=== PATIENT | female | born 1965 | race Caucasian/White ===

== ENCOUNTER 2018-10-25 09:40 | Day surgery (SDC) | payer OTHER ==
[2018-10-24 15:32] VITALS: Ht 165.1 cm; Wt 62.0 kg
[2018-10-25] VITALS (10 sets, daily range): BP systolic 112–122; BP diastolic 58–64; PULSE 60–75; RESP 14–19
[~2018-10-25] VITALS: Ht 165.1 cm; Wt 62.0 kg
[~2018-10-25 09:40] MED LIST: CLINDAMYCIN 600 MG/50 ML D5W IVPB IVPB ONE
[2018-10-25] MEDS ORDERED: BUPIVACAINE 0.5% (SDV) 30 ML INJ ONE (11:05)
[2018-10-25] MEDS ORDERED: BUPIVACAINE 0.25% (MPF) 30 ML INJ ONE (11:06)
[2018-10-25] MEDS ORDERED: PROPOFOL 100 ML ONE (11:07)
[2018-10-25] MEDS ORDERED: LIDOCAINE 100 MG SYRINGE ONE (11:07)
[2018-10-25] MEDS ORDERED: DEXAMETHASONE 4 MG/ML 5 ML INJ ONE (11:08)
[2018-10-25] MEDS ORDERED: ONDANSETRON 4 MG INJ ONE (11:08)
[2018-10-25] MEDS ORDERED: FENTAnyl 50 MCG/ML VIAL ONE (11:10)
[2018-10-25] MEDS ORDERED: LIDOCAINE 1% (MPF) 30 ML INJ ONE (11:22)
--- NOTE | 2018-10-25 11:25 | PREAC ---
Date/Time of Note Date/Time of Note DATE: 10/25/18 TIME: 11:25 Anesthesia Eval and Record Evaluation Time Pre-Procedure Interview DATE: 10/25/18 TIME: 11:25 Age 52 Sex female NPO: 8 hrs Preoperative diagnosis RIGHT CARPAL TUNNEL Planned procedure RIGHT CARPAL TUNNEL RELEASE Past Medical History Past Medical History: None Surgery & Anesthesia Issues No known issue Meds Anticoagulation: No Beta Nerissa within 24 hr: No Reason Beta Nerissa not given: Pt. not on B-Nerissa No Active Prescriptions or Reported Meds Meds reviewed: Yes Allergies Coded Allergies: Penicillins (Unverified Allergy, Unknown, RASHES, 10/25/18) PER PT diazepam (Verified Allergy, Unknown, DON'T REMEBER HAD IT WHEN SHE WAS A CHILD, 10/25/18) PER PT Allergies Reviewed: Yes Labs/Studies Labs Reviewed: Reviewed by anesthesiologist Result Diagram: 10/25/18 1020 10/25/18 1020 Laboratory Tests 10/25/18 10:20 test: Negative Pre-procedure Exam Last vitals Vital Signs Date Temp Pulse Resp B/P (MAP) Pulse Ox O2 O2 Flow FiO2 Time Delivery Rate 10/25/18 98.5 75 16 112/64 99 Room Air 10:49 (80) Airway: Adequate mouth opening Mallampati: Mallampati I Teeth: Normal Lung: Normal Heart: Normal ASA Physical Status ASA physical status: 1 Emergency: None Planned Anesthetic General/MAC: MAC Pre-operative Attestations Prior to commencing anesthesia and surgery, the patient was re-evaluated, there was verification of: *The patient's identity *The results of appropriate recent lab work and preoperative vital signs *The above evaluation not changing prior to induction *Anesthetic plan, risk benefits, alternative and complications discussed with patient/family; questions answered; patient/family understands, accepts and wishes to proceed. RODRIGUE MONTES DE OCA Oct 25, 2018 11:25
[2018-10-25] MEDS ORDERED: METOCLOPRAMIDE 10 MG INJ IV PRN (11:30)
[2018-10-25] MEDS ORDERED: LABETALOL HCL 20MG INJ IV PRN (11:30)
[2018-10-25] MEDS ORDERED: ONDANSETRON 4 MG INJ IV PRN (11:30)
[2018-10-25] MEDS ORDERED: FENTAnyl 50 MCG/ML VIAL IV PRN ×2 (11:30)
[2018-10-25] MEDS ORDERED: hydrALAzine 20 MG INJ IV PRN (11:30)
[2018-10-25] MEDS ORDERED: HYDROmorphONE 1 MG/5 ML IV SYRINGE IV PRN ×2 (11:30)
[2018-10-25] MEDS ORDERED: BACITRACIN/POLYMYXIN 28.35 GM OINT TOP ONE (12:01)
--- NOTE | 2018-10-25 12:12 | SIPON ---
Date/Time of Note Date/Time of Note DATE: 10/25/18 TIME: 12:11 Operative Report Preoperative Diagnosis Right carpal tunnel syndrome Postoperative Diagnosis Right carpal tunnel syndrome Operation/Procedure Performed Right carpal tunnel release Surgeon see signature line it administrative assistant None Anesthesia: general, MAC Estimated blood loss: minimal Transfusion Required none Specimen none Grafts/Implants none Complications none LIZBETH LOWE MD Oct 25, 2018 12:11
--- NOTE | 2018-10-25 12:15 | PAC ---
Date/Time of Note Date/Time of Note DATE: 10/25/18 TIME: 12:15 Post-Anesthesia Notes Post-Anesthesia Note Last documented vital signs Vital Signs Date Temp Pulse Resp B/P (MAP) Pulse Ox O2 O2 Flow FiO2 Time Delivery Rate 10/25/18 98.5 75 16 112/64 99 Room Air 10:49 (80) Activity: WNL Respiratory function: WNL Cardiovascular function: WNL Mental status: Baseline Pain reasonably controlled: Yes Hydration appropriate: Yes Nausea/Vomiting absent: Yes RODRIGUE MONTES DE OCA Oct 25, 2018 12:15
--- NOTE | 2018-10-25 12:19 | OPR ---
Date/Time of Note Date/Time of Note DATE: 10/25/18 TIME: 12:12 Operative Report Procedure Date: Oct 25, 2018 Preoperative Diagnosis Right carpal tunnel syndrome Postoperative Diagnosis Right carpal tunnel syndrome Operation/Procedure Performed Right carpal tunnel release Surgeon see signature line Agricultural Research Technologist None Anesthesia Type: MAC Anesthesiologist: RODRIGUE MONTES DE OCA Estimated Blood Loss: minimal Transfusion none Specimen none Grafts/Implants none Tubes/Drains none Complications none Pt Condition Post Procedure: stable Disposition: PACU Indications Earnestine is a 52 year old right hand dominant female who sustained a right fourth and fifth metacarpal base fracture February 2018. She has healed from this injury, but has developed numbness and tingling in her right hand. She has positive electrodiagnostic studies confirming carpal tunnel syndrome. She had a cortisone injection which wasn't effective. She elects to proceed with surgery. She understands risks of surgery which include are not limited to infection, pain, bleeding, neurovascular injury, stiffness, persistent numbness, weakness, decreased strength, and other anesthesia-related risks. She elects to proceed. Procedure Description Patient was identified in preoperative holding area. Upper extremity was marked. She was brought back to the operating room. She was placed supine. Light IV sedation was administered. 600mg IV Clindamycin was given. Time-out was performed indicating correct patient, site, and procedure. Local injection of 0.25% marcaine and 1% lidocaine plain was injected into the wrist. The arm was then prepped and draped in usual sterile fashion. Arm was exsanguinated with esmarch and tourniquet was elevated to 250mm Hg. A longitudinal incision was marked out in the palmar aspect of the hand along the radial border of the fourth ray. Skin was incised sharply. Palmar fascia was divided in line with the skin incision. The transverse carpal ligament was then divided in a proximal to distal direction. Distally, the fat pad was visualized. Proximally, a blunt tenotomy scissors was passed above and below the antebrachi al fascia, and this was divided under direct visualization. The palmar cutaneous branch of the median nerve was protected. The nerve was noted to be flattened. No other abnormalities were encountered. The nerve was intact. The tourniquet was released and hemostasis was achieved with bipolar cautery. Skin was closed with 4-0 nylon and a sterile dressing was applied. There was brisk capillary refill and all sponge and instruments counts were correct at the end of the case. She was awoken from anesthesia and taken to PACU in stable condition. LIZBETH LOWE MD Oct 25, 2018 12:19
[2018-10-25] MEDS ORDERED: POLYMYXIN/BACITRACIN 1L IRRIG IRR ONE (12:28)
[2018-10-25] MEDS ORDERED: HYDROCODONE/APAP (5/325) TAB PO ONE (13:30)
== END 2018-10-25 13:49 | disposition home or self-care (01) ==
LOC: SDS 09:40
PROVIDERS: ATTEND Orthopaedic Surgery
DX: G56.01 Carpal tunnel syndrome, right upper limb (principal)
CPT/HCPCS: 64721; 80048; 84703; 85025; 85610; 85730; J1100; J2001; J2405; J3010; Z7512; Z7610